=== PATIENT | female | born 1995 | race Caucasian/White ===

== ENCOUNTER 2018-10-17 19:48 | Emergency (ER) | payer MEDICAID, OTHER ==
--- NOTE | 2018-10-17 20:03 | ED ---
Back Pain - History of Current Complaint Chief Complaint: EDFlankPain Stated Complaint: "KIDNEY PAIN PER PT" Time Seen by Provider: 10/17/18 20:01 Pain Intensity: 4 - Allergies/Home Medications Allergies/Adverse Reactions: Allergies Allergy/AdvReac Type Severity Reaction Status Date / Time Penicillins Allergy Hives Verified 10/17/18 19:55 PMH/Surg Hx/FS Hx/Imm Hx Musculoskeletal History: Reports: Other Musculoskeletal History - "laurent" Psychiatric History: Reports: Hx Depression, Hx Inpatient Treatment, Hx Community Mental Health Tx, Hx Suicide Attempt, Hx of Violent Episodes Against Others, Other Psychiatric Issues/Disorders Denies: Hx Eating Disorder Infectious Disease History: No Infectious Disease History: Denies: Traveled Outside the [place] in Last 30 Days - Social History Substance Use Type: Reports: None Physical Exam Vital Signs On Initial Exam: Initial Vitals Temp Pulse Resp BP Pulse Ox 98.1 F 98 16 131/82 99 10/17/18 19:50 10/17/18 19:50 10/17/18 19:50 10/17/18 19:50 10/17/18 19:50 Diagnostics - Vital Signs Vital Signs Temp Pulse Resp BP Pulse Ox 10/17/18 19:50 98.1 F 98 16 131/82 99 - Laboratory Lab Statement: Any lab studies that have been ordered have been reviewed, and results considered in the medical decision making process. Discharge ED - Discharge Plan Referrals: No Primary Care Phys,NOPCP [Primary Care Provider] -
--- NOTE | 2018-10-17 20:04 | ED ---
GI/ HPI - HPI Summary HPI Summary: Patient complains of bilateral flank pain 1 week. Pain described as sharp, progressive. Initially intermittent, constant for the past 2 days. Patient states history of similar symptoms with prior "kidney infections". Also admits to burning with urination, increased urgency frequency 2 days. 3 episodes of vomiting 3 days ago. None since. Diarrhea yesterday and today. Denies fever, cough, sore throat, CP, SOB, abdominal pain, vaginal symptoms. Medical history is rickets. LMP October 02. Patient sexually active, using condoms. - History of Current Complaint Chief Complaint: EDFlankPain Time Seen by Provider: 10/17/18 20:01 Stated Complaint: "KIDNEY PAIN PER PT" Hx Obtained From: Patient Onset/Duration: Started Days Ago Timing: Constant Severity: Mild Current Severity: Moderate Pain Intensity: 4 Location of Pain: Flank Pain Characteristics: Sharp Associated Signs and Symptoms: Positive: Dysuria, Flank Pain, UTI Symptoms Aggravating Factor(s): Movement Alleviating Factor(s): Nothing - Allergy/Home Medications Allergies/Adverse Reactions: Allergies Allergy/AdvReac Type Severity Reaction Status Date / Time Penicillins Allergy Hives Verified 10/17/18 19:55 PMH/Surg Hx/FS Hx/Imm Hx Endocrine/Hematology History: Denies: Hx Anticoagulant Therapy Cardiovascular History: Denies: Hx Pacemaker/ICD History: Denies: Hx Dialysis Musculoskeletal History: Reports: Other Musculoskeletal History - "laurent" Sensory History: Denies: Hx Eye Prosthesis Opthamlomology History: Denies: Hx Legally Blind EENT History: Denies: Hx Deafness Neurological History: Denies: Hx Dementia Psychiatric History: Reports: Hx Depression, Hx Inpatient Treatment, Hx Community Mental Health Tx, Hx Suicide Attempt, Hx of Violent Episodes Against Others, Other Psychiatric Issues/Disorders Denies: Hx Eating Disorder Infectious Disease History: No Infectious Disease History: Denies: Traveled Outside the [place] in Last 30 Days - Family History Known Family History: Positive: Non-Contributory - Social History Alcohol Use: Occasionally Substance Use Type: Reports: None Hx Tobacco Use: No Review of Systems Constitutional: Negative Eyes: Negative ENT: Negative Cardiovascular: Negative Respiratory: Negative Positive: Vomiting, Diarrhea Positive: burning, frequency, flank pain, urgency Musculoskeletal: Negative Skin: Negative Neurological: Negative Psychological: Normal All Other Systems Reviewed And Are Negative: Yes Physical Exam - Summary Physical Exam Summary: Bilateral CVA tenderness. Abdomen soft nontender. Triage Information Reviewed: Yes Vital Signs On Initial Exam: Initial Vitals Temp Pulse Resp BP Pulse Ox 98.1 F 98 16 131/82 99 10/17/18 19:50 10/17/18 19:50 10/17/18 19:50 10/17/18 19:50 10/17/18 19:50 Vital Signs Reviewed: Yes Appearance: Positive: Well-Appearing Skin: Positive: Warm Head/Face: Positive: Normal Head/Face Inspection Eyes: Positive: Normal Neck: Positive: Supple Respiratory/Lung Sounds: Positive: Clear to Auscultation Cardiovascular: Positive: Normal Abdomen Description: Positive: Nontender, CVA Tenderness (R), CVA Tenderness (L) Musculoskeletal: Positive: Normal Neurological: Positive: Normal Psychiatric: Positive: Normal AVPU Assessment: Alert - Josh Coma Scale Best Eye Response: 4 - Spontaneous Best Motor Response: 6 - Obeys Commands Best Verbal Response: 5 - Oriented Coma Scale Total: 15 Diagnostics - Vital Signs Vital Signs Temp Pulse Resp BP Pulse Ox 10/17/18 19:50 98.1 F 98 16 131/82 99 - Laboratory Result Diagrams: 10/17/18 20:25 10/17/18 20:25 Lab Statement: Any lab studies that have been ordered have been reviewed, and results considered in the medical decision making process. GIGU Course/Dx - Course Course Of Treatment: Patient complains of bilateral flank pain 1 week. Pain described as sharp, progressive. Initially intermittent, constant for the past 2 days. Patient states history of similar symptoms with prior "kidney infections". Also admits to burning with urination, increased urgency frequency 2 days. 3 episodes of vomiting 3 days ago. None since. Diarrhea yesterday and today. Denies fever, cough, sore throat, CP, SOB, abdominal pain , vaginal symptoms. Medical history is rickets. LMP October 02. Patient sexually active, using condoms. Vital signs within normal limits. Labs unremarkable. Urine negative. Vaginal swabs pending. Adnexal tenderness bilaterally and CMT on pelvic exam. Rocephin 250 mg IM and azithromycin 1 g administered here in the ED. - Diagnoses Provider Diagnoses: Cervicitis Discharge ED - Sign-Out/Discharge Documenting (check all that apply): Patient Departure Patient Received Moderate/Deep Sedation with Procedure: No - Discharge Plan Condition: Stable Disposition: HOME Patient Education Materials: Cervicitis (ED) Referrals: No Primary Care Phys,NOPCP [Primary Care Provider] - Additional Instructions: Cultures from pelvic exam are pending. If they are positive for infection you will be contacted and treatment will be sent to pharmacy. Return to the ED for any new or worsening symptoms. - Billing Disposition and Condition Condition: STABLE Disposition: Home - Attestation Statements Provider Attestation: I was available for consult. This patient was seen by the HUNTER. The patient was not presented to, seen by, or examined by me. Gerald Judge MD
[2018-10-17 20:36] LABS: ABS Basophils 0.1 10^3/ul (0-0.2); ABS Eosinophils 0.2 10^3/ul (0-0.6); ABS Lymphocytes 2.1 10^3/ul (1.0-4.8); ABS Monocytes 0.4 10^3/ul (0-0.8); ABS Neutrophils 7.9 10^3/ul (1.5-7.7); Hematocrit 41 % (35-47); Lymphocyte % 19.9 %; Mean Corpuscular HGB Conc 34 g/dL (31-36); Mean Corpuscular Hemoglobin 30 pg (27-31); Mean Corpuscular Volume 88 fL (80-97); Mean Platelet Volume 7.9 fL (7.4-10.4); Platelet Count 291 10^3/uL (150-450); Red Blood Count 4.67 10^6 /uL (3.70-4.87); Red Cell Distribution Width 14 % (10-15); White Blood Count 10.8 10^3/uL (3.5-10.8)
[2018-10-17 20:39] LABS: Urine Appearance Clear; Urine Bilirubin Negative (Negative); Urine Blood Negative (Negative); Urine Color Yellow; Urine Glucose Negative (Negative); Urine Ketones Negative (Negative); Urine Nitrite Negative (Negative); Urine Protein Negative (Negative); Urine Specific Gravity 1.025 (1.010-1.030); Urine Urobilinogen Negative (Negative)
[2018-10-17] MEDS ORDERED: Lidocaine 1% MPF ** 5 ML VIAL IM ONE (20:52)
[2018-10-17] MEDS ORDERED: cefTRIAXone VIAL(*) 250 MG VIAL IM ONE (20:52)
[2018-10-17 20:55] LABS: Albumin 4.3 g/dL (3.2-5.2); Albumin/Globulin Ratio 1.3 (1-3); BUN/Creatinine Ratio 16.1 (8-20); C Reactive Protein 4.39 mg/L (<8.01); Calcium 9.6 mg/dL (8.6-10.3); EGFR African American 163.8 (>60); EGFR Non-African American 135.4 (>60); Globulin 3.3 g/dL (2-4); Potassium 4.3 mmol/L (3.5-5.0); Total Bilirubin 0.3 mg/dL (0.2-1.0); Total Protein 7.6 g/dL (6.4-8.9)
[2018-10-17] MEDS ORDERED: Azithromycin TAB* 250 MG PO ONE (20:55)
[2018-10-17 21:12] LABS: HCG Pregnancy 5.22 mIU/mL
[2018-10-17] MEDS ORDERED: Ibuprofen TAB* 600 MG PO ONE (21:27)
[2018-10-17 21:33] VITALS: BP 114/85
[2018-10-20 13:49] LABS: Chlamydia trachomatis NAA Negative (Negative); Neisseria gonorrhoeae (GC) NAA Negative (Negative)
--- NOTE | 2018-10-21 15:01 | PN ---
Progress Note - Progress Note Date of Service: 10/17/18 Note: Positive gardnerella. I called and spoke with pt. today at 1500 and discussed results. Rx for flagyl sent to pharmacy.
== END 2018-10-17 21:33 | disposition home or self-care (01) ==
LOC: ED 19:48
DX: N72 Inflammatory disease of cervix uteri (principal); Z79.899 Other long term (current) drug therapy; Z88.0 Allergy status to penicillin
CPT/HCPCS: 36415; 80053; 81003; 84702; 85025; 86140; 87480; 87491; 87510; 87591; 87661; 96372; 99283; A9270-GY; J0696